=== PATIENT | female | born 1965 | race Caucasian/White ===

== ENCOUNTER 2024-02-12 13:28 | Emergency (ER) | payer OTHER, SELFPAY ==
--- NOTE | ~2024-02-12 | XR_ITS ---
XR chest 2V Ordering provider: Marty Elizabeth MD History: 58 years Female with . chest pain, HYPERTENSION . Comparison: July 26, 2021 FINDINGS: MEDIASTINUM: The cardiac silhouette is not enlarged. LUNGS: No infiltrates, effusions or pneumothorax. Subsegmental atelectasis seen in the right midzone. Calcified granuloma in the left lower lobe. Prominent bronchovascular markings in the right lung base area. Early pneumonia cannot be excluded. F ollow-up advised. OTHER: No free air under the diaphragm. Healed rib fractures seen in the left hemithorax. Degenerative changes of the spine. IMPRESSION: Prominent bronchovascular markings in the right lung base area. Early pneumonia cannot be excluded. F ollow-up advised. Subsegmental atelectasis in the right midzone bowel thickening in the fissure is not excluded. Follow -up advised. Reviewed, dictated and finalized at location A. IMPRESSION: Prominent bronchovascular markings in the right lung base area. Early pneumonia cannot be excluded. Follow-up advised. Subsegmental atelectasis in the right midzone bowel thickening in the fissure i s not excluded. Follow-up advised.
--- NOTE | ~2024-02-12 | XR_ITS ---
EXAMINATION: XR hand RT min 3V DATE: 02/12/2024 16:47 INDICATION: Right hand pain. Fall. TECHNIQUE: 3 views of right hand were obtained. COMPARISON: Radiographs 12/21/2017 FINDINGS: Alignment is normal. No acute fracture. There are old healed fractures of the bases of the third and fifth proximal phalanges. There is mild osteoarthritis of first carpometacarpal joint and s econd and third metacarpophalangeal joints. There is moderate osteoarthritis of fifth metacarpophalan geal joint. 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 IMPRESSION: 1. Polyarticular osteoarthritis. Reviewed, dictated and finalized at location E.
--- NOTE | 2024-02-12 13:31 | ECG_ITS ---
Test Date: 2024-02-12 13:35:24 Measurements Intervals [place] Rate: 80 P: 83 [place]: 129 QRS: 34 QRSD: 88 T: 79 QT: 362 QTc: 420 Interpretive Statements SINUS RHYTHM POSSIBLE LEFT ATRIAL ENLARGEMENT NONSPECIFIC T-WAVE ABNORMALITY- HIGH LATERAL LEADS BORDERLINE ECG No previous ECG available for comparison Electronically Signed On 02-12-2024 13:42:35 CDT by Jesus Manuel Morley D.O.
[2024-02-12 13:46] VITALS: BP 124/68; PULSE 83; RESP 20; TEMP 36.5; O2SAT 100
[2024-02-12 13:52] LABS: Basophils Absolute Auto 0.1 K/mm3 (0.0-0.1); Eosinophils Absolute Auto 0.2 K/mm3 (0-0.3); Eosinophils Percent Auto 3.3 % (0-4.4); Hematocrit 36.5 % (37.0-47.0); Hemoglobin 11.8 g/dL (12.0-15.0); Immature Granulocyte Absolute 0.01 K/mm3 (0.00-0.031); Immature Granulocyte Percent A 0.2 % (0-0.5); Lymphocytes Absolute Auto 1.95 K/mm3 (0.9-3.2); Lymphocytes Percent Auto 32.3 % (18.3-44.2); Mean Corpuscular HGB Conc 32.3 g/dl (32-36); Mean Corpuscular Hemoglobin 31.8 pg (26-34); Mean Corpuscular Volume 98.4 fl (80-100); Mean Platelet Volume 9.6 fl (7.4-10.4); Monocytes Absolute Auto 0.5 K/mm3 (0.1-0.6); Monocytes Percent Auto 7.6 % (2.6-8.5); Neutrophils Absolute Auto 3.4 K/mm3 (1.3-6.7); Neutrophils Percent Auto 55.6 % (45.5-73.1); Platelet Count Result 256 k/mm3 (150-375); Red Blood Count 3.71 M/mm3 (4.2-5.4); Red Cell Distribution Width 13.2 % (11.5-14.5)
[2024-02-12 14:08] LABS: Prothrombin Time 13.6 Seconds (11.1-14.7)
[2024-02-12 14:09] LABS: Partial Thromboplastin Time 28.2 Seconds (22.3-36.8)
[2024-02-12 14:13] LABS: Troponin I < 0.012 ng/mL (0.000-0.034)
[2024-02-12 14:14] LABS: Alanine Aminotransferase 10 U/L (6-35); Alkaline Phosphatase 103 U/L (38-126); Anion Gap 6 mmol/L (4-12); Aspartate Amino Transferase 21 U/L (14-36); Bilirubin,Total 0.3 mg/dL (0.2-1.3); Blood Urea Nitrogen 20 mg/dL (7-17); Calcium 8.8 mg/dL (8.4-10.2); Carbon Dioxide 33 mmol/L (22-30); Chloride 104 mmol/L (98-107); Estimated CRCL calculation 66 ml/min; Estimated Glomerular Filt Rate > 60; Glucose 83 mg/dL (65-110); Lipase 90 U/L (23-300); Sodium 143 mmol/L (137-145)
[2024-02-12 15:39] VITALS: PULSE 80; O2SAT 99
[2024-02-12 15:41] VITALS: BP 139/69; PULSE 77; RESP 12; O2SAT 99
[2024-02-12 16:01] VITALS: BP 136/75; PULSE 80; RESP 13; TEMP 36.8; O2SAT 100
--- NOTE | 2024-02-12 16:22 | ECG_ITS ---
Test Date: 2024-02-12 16:39:34 Measurements Intervals [place] Rate: 73 P: 81 [place]: 132 QRS: 33 QRSD: 89 T: 73 QT: 392 QTc: 434 Interpretive Statements SINUS RHYTHM BASELINE ARTIFACT- I, II, AVR, AVL NORMAL ECG Compared to ECG 02/12/2024 13:35:24 No significant changes Electronically Signed On 02-12-2024 18:28:38 CDT by Jesus Manuel Morley D.O.
[2024-02-12 16:31] VITALS: BP 125/80; PULSE 77; PULSE 78; RESP 13; RESP 15; O2SAT 98
--- NOTE | 2024-02-12 16:34 | ED.CHESTPAIN ---
HPI - Chest Pain General Chief Complaint: Chest Pain Stated Complaint: cp Time Seen by Provider: 02/12/24 15:23 History of Present Illness HPI narrative: Patient is a 58-year-old female presenting with concerns for high blood pressure. Patient states that her PCP has been making changes to her antihypertensives over the last couple of months. States that she notices that her blood pressure is still high, sometimes in the 190 systolic. She became concerned today so she told the staff at [facility] not where she is staying and they brought her in for evaluation. States that she has had intermittent chest pain for several months as well as mild shortness of breath which is improving since she stopped smoking. She denies chest pain today. Denies new cough. No fevers. No abdominal pain, nausea or vomiting. No leg swelling. No further complaints. Related Data Allergies Allergy/AdvReac Type Severity Reaction Status Date / Time No Known Allergies Allergy Verified 02/12/24 15:38 Review of Systems Review of Systems: All systems reviewed & are unremarkable except as noted in HPI and below Exam Narrative: GENERAL: Well-appearing, In no acute distress, pleasant cooperative HEAD: Normocephalic, atraumatic. EYES: PERRLA and EOMI. ENT: Mucous membranes moist. NECK: Supple. CHEST: Clear to auscultation. No respiratory distress. HEART: Regular rate and rhythm ABDOMEN: Soft, nontender, nondistended EXTREMITIES: Normal range of motion. No edema. SKIN: Warm, dry, no rash. NEURO: Alert and oriented x3. PSYCH: Normal mood and affect. Course Vital Signs Vital signs: Vital Signs Temperature 97.7 F 02/12/24 13:46 Pulse Rate 83 02/12/24 13:46 Respiratory Rate 20 02/12/24 13:46 Blood Pressure 124/68 02/12/24 13:46 Pulse Oximetry 100 02/12/24 13:46 Oxygen Delivery Room Air 02/12/24 13:46 Temperature 97.7 F 02/12/24 13:46 Pulse Rate 77 02/12/24 16:31 Respiratory Rate 15 02/12/24 16:31 Blood Pressure 125/80 02/12/24 16:31 Pulse Oximetry 98 02/12/24 16:31 Oxygen Delivery Room Air 02/12/24 15:39 MDM - Chest Pain MDM Narrative Medical decision making narrative: 58-year-old female presenting with concerns for hypertension. Vitals here are within normal limits. Blood pressures have been normal in the 120s over 80s. EKG per my interpretation shows normal sinus rhythm, nonspecific T-wave changes in lateral leads, no ST elevations or depressions. No priors for comparison. Blood work is unremarkable. Troponin is undetectable. Chest x-ray is being read as possible early pneumonia due to increased bronchovascular markings. She denies any symptoms that are concerning for pneumonia. I am not concerned for pneumonia at this time. 3 hour troponin remains undetectable. Repeat EKG is unchanged. On re-evaluation, the patient is sleeping comfortably. Her vital signs remained within normal limits. Discussed the reassuring workup with the patient. Advised that she follow-up closely with her PCP to discuss her antihypertensives. States that she is going to see him this Sunday. Appropriate return precautions given. Patient is agreeable to this plan. Discharged in stable condition. Differential Diagnosis Differential diagnosis: Likely atypical chest pain, costochondritis, chest pain and other ( Asymptomatic hypertension) Medical Records Data Attestation: I reviewed the patient's medical records. Lab Data Attestation: I reviewed the patient's lab results. 02/12/24 13:43 02/12/24 13:43 Labs: Lab Results 02/12/24 02/12/24 Range/Units 13:43 16:26 WBC 6.0 (4.5-10.0) K/mm3 RBC 3.71 L (4.2-5.4) M/mm3 Hgb 11.8 L (12.0-15.0) g/dL Hct 36.5 L (37.0-47.0) % MCV 98.4 (80-100) fl MCH 31.8 (26-34) pg MCHC 32.3 (32-36) g/dl RDW 13.2 (11.5-14.5) % Plt Count 256 (150-375) k/mm3 MPV 9.6 (7.4-10.4) fl Immature Gran % (Auto) 0.2
[2024-02-12 16:55] LABS: Troponin I < 0.012 ng/mL (0.000-0.034)
[2024-02-12 17:36] VITALS: BP 122/78; PULSE 78; RESP 14; TEMP 36.8; O2SAT 98
== END 2024-02-12 18:18 | disposition home or self-care (01) ==
PROVIDERS: Preventive Medicine Aerospace Medicine; Emergency Provider Emergency Medicine; PCP Internal Medicine
DX: I10 Essential (primary) hypertension (principal); R07.89 Other chest pain; M19.041 Primary osteoarthritis, right hand; M18.9 Osteoarthritis of first carpometacarpal joint, unspecified; Z87.891 Personal history of nicotine dependence; R94.31 Abnormal electrocardiogram [ECG] [EKG]; R91.8 Other nonspecific abnormal finding of lung field
CPT/HCPCS: 36415; 71046; 73130; 80053; 83690; 84484; 85025; 85610; 85730; 93005; 99284